=== PATIENT | male | born 1945 | race Caucasian/White ===

== ENCOUNTER 2016-07-02 08:49 | Inpatient (IN) | payer OTHER ==
--- NOTE | 2016-06-28 20:04 | HP ---
HISTORY AND PHYSICAL: DATE OF OFFICE VISIT: 06/28/16 DATE OF SURGERY: 07/02/16 SURGEON: Amara Fletcher MD PROCEDURE: Left total knee arthroplasty. CHIEF COMPLAINT: Left knee pain. HISTORY OF PRESENT ILLNESS: Mr. Herrmann is a 70-year-old gentleman with complaints of left knee pain and advanced osteoarthritis. He has failed conservative management and has elected to proceed with a left total knee arthroplasty. The surgery is scheduled for 07/02/[address] Fletcher. PAST MEDICAL HISTORY: History of lung cancer, hypertension, high cholesterol, acid reflux, divertic ulitis. PAST SURGICAL HISTORY: He had tumor removed from his right lung, right total knee arthroplasty, col on resection, bilateral shoulder arthroscopies, bilateral knee arthroscopies, and a partial left tot al knee arthroplasty. CURRENT MEDICATIONS: 1. Albuterol. 2. Amlodipine. 3. Atorvastatin. 4. Calcium. 5. Fluticasone. 6. Hydrochlorothiazide. 7. Omeprazole. 8. Sildenafil. ALLERGIES: No known drug allergies. FAMILY HISTORY: Lung cancer. SOCIAL HISTORY: He is a 70-year-old gentleman. He is and lives with his . He does not smoke or use drugs and uses alcohol socially. REVIEW OF SYSTEMS: A complete 14-point review of systems was reviewed with the patient, all was neg ative or noncontributory. PHYSICAL EXAMINATION GENERAL: He is well-developed, well-nourished, in no acute distress. VITAL SIGNS: He stands 5 feet 8 inches tall, weighs 195 pounds, blood pressure is 138/86, and his h eart rate is 96. HEENT: Normocephalic, atraumatic. NECK: Supple. No palpable lymph nodes. Trachea is midline. PULMONARY: The lungs are clear to auscultation bilaterally. No wheezes, rhonchi, or rales. CARDIO: Regular rate and rhythm. Strong S1, S2. No murmurs, gallops, or rubs. No peripheral edema . ABDOMEN: Soft, nontender, and nondistended. MUSCULOSKELETAL: Left lower extremity, the skin is intact. He has some moderate joint effusion, te nderness over the medial and lateral joint line. Full range of motion of the left knee. 2+ dorsali s pedis pulses, intact sensation. His lower extremity muscle group strengths are intact at 5/5. NEUROLOGIC: He is alert and oriented x3. Cranial nerves II through XII are intact. ASSESSMENT: Mr. Herrmann 70-year-old gentleman with complaints of left knee pain. He had a partial l eft knee replacement in the past. He has elected to proceed with a revision to complete left total knee. The surgery is scheduled for 07/02/[address] Fletcher discussed the risks and bene fits of the surgery with him today and all his questions were answered. Coumadin, Colace, and Perco [facility] and he was instructed not to take these medications prior to the s urgery. He will follow with Dr. Fletcehr in 2 weeks following the surgery. CHECO WISDOM [id number]/[facility] #: [id number]
[~2016-07-02 08:49] MED LIST: Buffered Lidocaine 1% SYR 3ML* 3 ML/SYR SYRINGE INTRADERM ONE; Dexamethasone IV* 4 MG/ML 1 ML (4 MG) IV SLOW PU ONE
[2016-07-02] MEDS ORDERED: ceFAZolin 2 GM PREMIX (*) 2 GM/50 ML BAG IVPB ONE (09:47)
[2016-07-02] MEDS ORDERED: Buffered Lidocaine 1% SYR 3ML* 3 ML/SYR SYRINGE ONE (09:47)
[2016-07-02] MEDS ORDERED: Dexamethasone IV* 4 MG/ML 1 ML (4 MG) ONE (09:48)
[2016-07-02] MEDS ORDERED: Morphine PF AMP (0.5MG/ML)* 5 MG/10 ML AMP ONE (11:15)
[2016-07-02] MEDS ORDERED: Midazolam* 1 MG/ML 5 ML VIAL (5 MG) ONE ×2 (11:15→12:25)
[2016-07-02] MEDS ORDERED: KETAMINE HCL* 50 MG/ML 10 ML VIAL ONE (11:15)
[2016-07-02] MEDS ORDERED: Bupivacaine 0.5% SDV PF* 30 ML VIAL ONE (11:16)
[2016-07-02] MEDS ORDERED: Scopolamine 1.5 mg* PATCH TRANSDERM PRN (13:06)
[2016-07-02] MEDS ORDERED: Ondansetron INJ* 2 MG/ML VIAL IV PRN (13:06)
[2016-07-02] MEDS ORDERED: oxyCODONE/Acetamin 5/325 MG* TAB PO PRN ×2 (13:06)
[2016-07-02] MEDS ORDERED: Naloxone* 0.4 MG/ML 1 ML VIAL IV PRN (13:06)
[2016-07-02] MEDS ORDERED: fentaNYL* 50 MCG/ML 2 ML VIAL (100 MCG VIAL) IV PRN (13:06)
[2016-07-02] MEDS ORDERED: Nalbuphine* 20 MG/ML 1 ML VIAL IV PRN ×2 (13:06)
[2016-07-02] MEDS ORDERED: Propofol* 10 MG/ML 20 ML BTL IV PUSH ONE ×2 (14:00→14:22)
[2016-07-02] MEDS ORDERED: Ropivacaine* 300 MG in NS 0.9% 250 ML* 240 ML EPIDURAL SCH (14:00)
[2016-07-02] MEDS ORDERED: Ondansetron INJ* 2 MG/ML VIAL ONE (14:22)
[2016-07-02] MEDS ORDERED: Bisacodyl SUPP* 10 MG SUPP PR PRN (15:13)
[2016-07-02] MEDS ORDERED: Polyethylene Glycol 3350* 17 GM PACKET PO PRN (15:13)
[2016-07-02] MEDS ORDERED: Magnesium Hydroxide LIQ* 30 ML UDC PO PRN (15:13)
[2016-07-02] MEDS ORDERED: Acetaminophen TAB* 325 MG PO PRN (15:13)
[2016-07-02] MEDS ORDERED: diPHENhydraMINE IV* 50 MG/ML 1 ml VIAL (BENADRYL) IV PRN (15:13)
[2016-07-02] MEDS ORDERED: PTO: Albuterol/Ipratropium RESP(NF) MDI (Combivent Respimat) INH PRN (15:19)
--- NOTE | 2016-07-02 16:18 | RAD ---
HISTORY: Status post knee arthroplasty COMPARISONS: December 26, 2016 VIEWS: 2, Frontal and lateral views of the left knee FINDINGS: BONE DENSITY: Normal. BONES: The patient is status post left knee arthroplasty. There is no hardware failure or osteolysis. JOINTS: The patient is status post left knee arthroplasty ALIGNMENT: There is no dislocation. SOFT TISSUES: There is post surgical change to the soft tissue OTHER FINDINGS: None. IMPRESSION: STATUS POST LEFT KNEE ARTHROPLASTY.
[2016-07-02] MEDS ORDERED: Warfarin TAB(*) 6 MG PO ONE (17:00)
[2016-07-02] MEDS: Atorvastatin* 20 MG TAB PO SCH (18:23)
[2016-07-02] MEDS: ceFAZolin 1 GM in Dextrose (*) 1 GM/50 ML BAG IVPB SCH (18:23)
[2016-07-02] MEDS: Fluticasone NASAL SPRAY 50MCG* 16 gm SPRAY BTL BOTH NARES SCH (18:25)
--- NOTE | 2016-07-02 19:42 | CONS ---
CONSULTATION REPORT: DATE OF CONSULT: 07/02/16 ATTENDING PHYSICIAN: Amara Fletcher MD. CONSULTING PHYSICIAN: Tin Roman MD (dictation provided by Silvia Llanos NP ). CHIEF COMPLAINT: Left knee pain. REASON FOR CONSULT: Medical comanagement in a patient admitted for left total knee arthroplasty. HISTORY OF PRESENT ILLNESS: Mr. Herrmann is a 70-year-old with a past medical history of lung cancer status post lobectomy, right total knee arthroplasty, hypertension who presented to the hospital today for left total knee arthroplasty with Dr. Fletcher. Please see dictated H and P from her for complete details. In brief, the patient has failed conservative management and elected to proceed with a surgical intervention. He states that prior to coming into surgery, he was feeling his normal state of health with no complaints. He does have a history of lung cancer but has been "cancer free" with routine followup with his oncologist. He has high blood pressure but states it is well controlled with his amlodipine. PAST MEDICAL HISTORY: 1. History of lung cancer status post lobectomy. 2. Hypertension. 3. Hyperlipidemia. 4. GERD. 5. History of diverticulitis. 6. Right total knee arthroplasty. 7. Colon resection. 8. Bilateral shoulder arthroscopies. 9. Bilateral knee arthroscopies. 10. Partial left total arthroplasty. MEDICATIONS: 1. Centrum Silver 1 tab p.o. daily. 2. Ibuprofen 2 tablets p.o. q.6 hours p.r.n. 3. Albuterol/ipratropium 1 puff inhaled p.o. 4 times a day p.r.n. 4. Amlodipine 10 mg p.o. q.a.m. 5. Atorvastatin 20 mg p.o. q.p.m. 6. Flonase 1 spray both nares q.p.m. 7. Hydrochlorothiazide 12.5 mg p.o. q.a.m. 8. Omeprazole 20 mg p.o. b.i.d. ALLERGIES: No known drug allergies. FAMILY HISTORY: Reviewed and noncontributory. SOCIAL HISTORY: The patient has a history of tobacco abuse, quit many years ago. There is a report of social drinking. The patient states he has never had an issue with withdrawal symptoms. He lives with his and states she is his healthcare proxy. REVIEW OF SYSTEMS: A 14-point review of systems was completed with Mr. Herrmann and all those not mentioned above were negative. PHYSICAL EXAM: Vital Signs: Temperature 96.9, heart rate 90, respiratory rate 18, O2 saturation 100% on 4 L nasal cannula, and blood pressure 122/63. General : Mr. Herrmann is lying in the bed in the PACU. He is in no acute distress. Neuro: He is alert and oriented x3. Moves all extremities equally. There is no facial asymmetry or focal weakness. Extraocular movements are intact. Heart : S1, S2. No murmur, rub, or gallop and regular. Lungs: Clear to auscultation bilaterally with no accessory muscle use and good aeration. Abdomen: Soft and nontender with the bowel sounds positive x4. Extremities: No cyanosis or edema. Skin is intact. The patient does have a dressing to his left knee and that incision site was not assessed today. DIAGNOSTIC STUDIES/LAB DATA: The patient does not have a recent set of labs prior to this operation. IMPRESSION: Mr. Herrmann is a 70-year-old male with past medical history of hypertension, lung cancer status post lobectomy, now "in remission" who presents to the hospital today for left total knee arthroplasty with Dr. Fletcher. PLAN/RECOMMENDATIONS: 1. Postop day #0 status post left knee arthroplasty: Management will be per orthopedic surgical services. The patient will have physical and occupational therapy. He will have pain medication p.r.n. with a bowel regimen and we will monitor the H and H closely. 2. Hypertension. Continue amlodipine. 3. Gastroesophageal reflux disease. Continue omeprazole. 4. Hyperlipidemia. Continue atorvastatin. 5. DVT prophylaxis with Lovenox and warfarin per Ortho. 6. Code status is full code. 7. Disposition per Ortho. TIME SPENT: Approximately 60 minutes was spent in the consultation of this patient, more than half the time was spent with him at the bedside, reviewing the events leading up to and so far during this hospitalization, performing the physical examination, and reviewing the [place] [id number]/[facility] #: [id number] PRAVEEN
[2016-07-02] MEDS: Omeprazole CAP* 20 MG PO SCH (21:00)
[2016-07-02] MEDS: Docusate CAP* 100 MG PO SCH (21:00)
[2016-07-03] MEDS: ceFAZolin 1 GM in Dextrose (*) 1 GM/50 ML BAG IVPB SCH ×2 (02:38→09:44)
[2016-07-03] MEDS ORDERED: Ondansetron INJ* 2 MG/ML VIAL IV PRN (06:00)
[2016-07-03] MEDS ORDERED: oxyCODONE/Acetamin 5/325 MG* TAB PO PRN (06:00)
[2016-07-03] MEDS ORDERED: Ondansetron TAB* 4 MG PO PRN (06:00)
[2016-07-03 07:13] LABS: Hematocrit 34 % (42-52); Hemoglobin 11.7 g/dl (14.0-18.0)
[2016-07-03] MEDS: oxyCODONE TAB* 5 MG TAB PO PRN ×3 (07:21→20:11)
--- NOTE | 2016-07-03 07:40 | PN ---
Progress Note - Progress Note SOAP: Subjective: Pt. reports pain is controlled. Objective: LLE - drain removed, tip intact with 250 cc ss drainage. distally +df/pf, full sens lt, 2+ dp pulse. Vital Signs: Temp Pulse Resp BP Pulse Ox 98.1 F 98 20 111/63 96 07/03/16 03:22 07/03/16 03:22 07/03/16 07:21 07/03/16 03:22 07/03/16 03:22 Laboratory Results - last 24 hr 07/03/16 07/03/16 06:32 06:32 Hgb 11.7 L Hct 34 L INR (Anticoag Therapy) 1.03 Assessment: 70 yo M pod 1 s/p revision LTKA Plan: xrays satisfactory wbat LLE PT/OT prn analgesia plan d/c to home with vns 07/04 or 07/05 8 mg coumadin, cont lovenox
[2016-07-03 07:48] LABS: BUN/Creatinine Ratio 18.3 (8-20); Calcium 8.9 mg/dL (8.6-10.3); EGFR African American 91.3 (>60)
[2016-07-03] MEDS: Hydrochlorothiazide TAB* 25 MG PO SCH (08:44)
[2016-07-03] MEDS: Docusate CAP* 100 MG PO SCH ×2 (08:44→20:11)
[2016-07-03] MEDS: Omeprazole CAP* 20 MG PO SCH ×2 (08:44→20:11)
[2016-07-03] MEDS: amLODIPine TAB* 5 MG PO SCH (08:44)
--- NOTE | 2016-07-03 08:57 | PN ---
Subjective Date of Service: 07/03/16 Interval History: patient reports he has some "mild-mod pain but is manageable" - overall feels pretty good. no N/V/D. No fevers or chills. Feels like PT went well today. Objective Active Medications: Acetaminophen (Tylenol Tab*) 650 mg PO Q4H PRN PRN Reason: PAIN OR TEMPERATURE Albuterol/Ipratropium (Combivent Respimat(Nf)) 1 puff INH QID PRN; Protocol PRN Reason: SOB/WHEEZING Amlodipine Besylate (Norvasc Tab*) 10 mg PO QAM [facility] Last Admin: 07/03/16 08:44 Dose: 10 mg Atorvastatin Calcium (Lipitor*) 20 mg PO QPM [facility] Last Admin: 07/02/16 18:23 Dose: 20 mg Bisacodyl (Dulcolax Supp*) 10 mg KS DAILY PRN PRN Reason: constipation Diphenhydramine HCl (Benadryl Iv*) 12.5 mg IV Q6H PRN PRN Reason: PRURITIS Docusate Sodium (Colace Cap*) 100 mg PO BID [facility] Last Admin: 07/03/16 08:44 Dose: 100 mg Enoxaparin Sodium (Lovenox(*)) 30 mg SUBCUT Q24H [facility] Fluticasone Propionate (Flonase Nasal [place] 50mcg*) 1 spray BOTH NARES QPM [facility] Last Admin: 07/02/16 18:25 Dose: Not Given Hydrochlorothiazide (Hydrodiuril Tab*) 12.5 mg PO QAM [facility] Last Admin: 07/03/16 08:44 Dose: 12.5 mg Cefazolin Sodium/Dextrose (Kefzol 1 Gm In Dextrose Duplex (*)) 1 gm in 50 mls @ 200 mls/hr IVPB Q8H [facility] Stop: 07/03/16 10:14 Last Admin: 07/03/16 02:38 Dose: 200 mls/hr Lactated Ringer's (Lactated Ringers 1000 Ml Bag*) 1,000 mls @ 100 mls/hr IV PER RATE [facility] Last Admin: 07/03/16 01:38 Dose: 100 mls/hr Lactulose (Lactulose*) 30 ml PO Q6H PRN PRN Reason: constipation Magnesium Hydroxide (Milk Of Magnesia Liq*) 30 ml PO Q6H PRN PRN Reason: constipation Morphine Sulfate (Morphine Inj (Syringe)*) 2 mg IV Q2H PRN PRN Reason: PAIN Omeprazole (Prilosec Cap*) 20 mg PO BID JENAE Last Admin: 07/03/16 08:44 Dose: 20 mg Ondansetron HCl (Zofran Inj*) 4 mg IV Q6H PRN PRN Reason: nausea Ondansetron HCl (Zofran Tab*) 4 mg PO Q6H PRN PRN Reason: NAUSEA Oxycodone HCl (Roxycodone Tab*) 10 mg PO Q4H PRN PRN Reason: SEVERE PAIN Last Admin: 07/03/16 07:21 Dose: 10 mg Oxycodone/Acetaminophen (Percocet 5/325 Tab*) 1 tab PO Q3H PRN PRN Reason: PAIN - MODERATE Oxycodone/Acetaminophen (Percocet 5/325 Tab*) 2 tab PO Q3H PRN PRN Reason: PAIN - MODERATE Pharmacy Profile Note (Scopolomine Patch Remove*) 1 note PATCH OFF .AFTER 72 HOURS ONE Stop: 07/05/16 13:12 Pharmacy Profile Note (Coumadin Daily Reminder*) 1 note FOLLOW UP 1700 [facility] Polyethylene Glycol/Electrolytes (Miralax*) 17 gm PO DAILY PRN PRN Reason: Constipation Warfarin Sodium (Coumadin Tab(*)) 8 mg PO ONCE@1700 ONE PRN Reason: Protocol Stop: 07/03/16 17:01 Vital Signs 07/02/16 07/02/16 07/03/16 19:32 20:00 00:00 Temperature 97.8 F Pulse Rate 101 Respiratory 16 18 Rate Blood Pressure 115/62 (mmHg) O2 Sat by Pulse 97 Oximetry 07/03/16 07/03/16 07/03/16 00:05 02:15 03:22 Temperature 97.8 F 98.1 F Pulse Rate 92 98 Respiratory 16 16 Rate Blood Pressure 104/55 111/63 (mmHg) O2 Sat by Pulse 97 97 96 Oximetry 07/03/16 07/03/16 07/03/16 04:09 06:09 07:21 Temperature Pulse Rate Respiratory 18 18 20 Rate Blood Pressure (mmHg) O2 Sat by Pulse Oximetry 07/03/16 07:27 Temperature 98.0 F Pulse Rate 100 Respiratory 18 Rate Blood Pressure 139/78 (mmHg) O2 Sat by Pulse 98 Oximetry Oxygen Devices in Use Now: None Appearance: obese male sitting up in a chair in NAD A+O x3 Eyes: No Scleral Icterus, PERRLA Ears/Nose/Mouth/Throat: NL Teeth, Lips, Gums, Mucous Membranes Moist Neck: NL Appearance and Movements; NL JVP Respiratory: Symmetrical Chest Expansion and Respiratory Effort, Clear to Auscultation Cardiovascular: NL Sounds; No Murmurs; No JVD, RRR, No Edema Abdominal: NL Sounds; No Tenderness; No Distention Extremities: - - right lower ext with cryo unit Neurological: Alert and Oriented x 3, NL Sensation, NL Muscle Strength and Tone Lines/Tubes/Other Access: Clean, Dry and Intact Peripheral IV Nutrition: Taking PO's Result Diagrams: 07/03/16 06:32 07/03/16 06:32 Microbiology and Other Data: Microbiology 07/02/16 13:00 Gram Stain - Final Knee Left Assess/Plan/Problems-Billing Assessment: Mr. Herrmann is a 70 yo with PMH of lung ca s/p lobectomy, HTN, right total knee arthroplasty who presented om 07/02/16 for elective left total knee arthroplasty with Dr. Fletcher. Hospital Medicine was asked to co-medical management. - Patient Problems (1) Status post total left knee replacement Comment: Dispo per Ortho. Pain management, Bowel Regimen. HH stable. Continue to monitor. (2) Tachycardia Status: Acute Comment: - mildy tachycardiac low 100s - suspect pain. No CP or SOB. No hypoxia. Will obtain EKG. Pain management. (3) COPD (chronic obstructive pulmonary disease) Comment: controlled. Continue albuterol prn. (4) Hyperlipidemia Comment: Continue atorvastatin. (5) Hypertension Comment: - controlled. continue home medications - HCTZ, norvasc. (6) DVT prophylaxis Comment: lovenox Status and Disposition: inpatient. Dispo per Ortho.
[2016-07-03] MEDS: oxyCODONE/Acetamin 5/325 MG* TAB PO PRN ×2 (09:42→16:57)
--- NOTE | 2016-07-03 09:56 | OP ---
DATE OF OPERATION: 07/02/16 - ROOM #333 DATE OF : 49 SURGEON: Amara Fletcehr MD EXCELLENCE SPECIALIST: CHECO Jerez ANESTHESIOLOGIST: Dr. Carranza. ANESTHESIA: Spinal. 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 OPERATIVE PROCEDURE: Revision, left total knee arthroplasty, revision of femur and tibia with patellar resurfacing. TOURNIQUET TIME: 71 minutes. ESTIMATED BLOOD LOSS: 250 cc. COMPLICATIONS: None. SPECIMENS: Medial bone hardware sent to pathology. Bone and cartilage from the left knee joint sent to pathology. HARDWARE USED: Cemented [employer] total knee hardware. Two packages of Simplex bone cement were used. For the femur, a size 6 left narrow femoral component. For the tibia, a size 5 left tibial base plate. A 35 mm 3-peg All Poly patella was used as well as an 11 mm constrained articular insert. BRIEF HISTORY/INDICATIONS: Mr. Herrmann is a 70-year-old gentleman with 1 year of increasingly severe left knee pain. The patient had prior left medial compartment uni-arthroplasty at an outside facility. Initially, he had significant improvement in his pain. Over time, he developed peripatellar pain as well as medial and lateral joint line pain. He failed conservative treatment with physical therapy. Radiographs showed periprosthetic loosening of the medial compartment uni-arthroplasty. Decision was made to perform revision left total knee arthroplasty. The uni-arthroplasty would be removed and a total knee replacement would be placed. Informed consent was obtained from the patient. He understood a primary implant may not be possible. He accepted that he may need long stems and revision components due to bone loss in the tibia. The patient understood the risks of the procedure included but were not limited to, bleeding, infection, damage to nearby structures, continued pain, need for further surgery, intraoperative fracture, nerve palsy, hardware failure or loosening, heart attacks, stroke, blood clot, and . He wished to proceed. INTRAOPERATIVE FINDINGS: Intraoperatively, the patient had periprosthetic osteolysis along the medial femoral condyle with some bone loss here. He had loosening of the tibial implant with bone loss mainly from the prior surgical cuts. The patient had visible degeneration in the lateral and patellofemoral compartments with cartilage loss and osteophyte formation. DESCRIPTION OF PROCEDURE: Mr. Herrmann was identified in the preanesthesia unit. His left lower extremity was marked as the correct operative side. Informed consent was signed and placed in the chart. The left lower extremity was marked as the correct operative side. The patient was taken to the operating room and placed under spinal anesthesia. A Robles catheter was placed. Tourniquet was placed on the left thigh. The left lower extremity was prepped and draped in the usual sterile fashion. Preop time-out was made to correctly identify the patient's side and site. Appropriate perioperative antibiotics were given within 1 hour of incision. Tourniquet was inflated until the tourniquet time for this procedure was 71 minutes. The patient's prior medial incision was used and this was extended proximally and distally. A 10 blade was used to make the incision and carried down to the extensor mechanism. New 10 blade was used to make a standard medial peripatellar arthrotomy and the patella was subluxed laterally. Electrocautery was used to subperiosteally elevate soft tissue off the superomedial tibia. It was noted that the MCL had significant laxity. The MCL was, however, intact. The uni-arthroplasty implants were visualized. The knee was flexed up. Anterior horn of the lateral meniscus and ACL were sharply released. An osteotome was used to remove the polyethylene insert. At this point, a small oscillating saw was used to disrupt the interface between the femoral implant and cement. Flexible osteotome was used to aid this. A rigid osteotome was then used to remove the femoral implants. Very little bone was associated with the implants. Medial femoral condyle did have some periprosthetic osteolytic bone loss. This involved mainly the distal portion of the medial femoral condyle. Next, attention was turned to removal of the tibial implant. Small oscillating saw was used to brake the boundary between the implant and cement. Flexible osteotome was used to further this cause. The implant was then carefully removed with very little bone loss. Drill was used to enter the distal femur. Intramedullary distal femoral cutting guide was placed on the distal femur with a 5 mm distal augment to correct for any bone loss along the medial femoral condyle. Oscillating saw was used to make the appropriate distal femoral cut. External rotation guide was then placed on the distal femur and the femur was sized to a size 6. Size 6 multi-cutting jig was placed on the distal femur. Oscillating saw was used to make the appropriate chamfer cuts. Despite the osteolysis, decision was made to use cement for the distal medial femoral condyle bone deficits as these were minimal after chamfer cuts. The PCL was completely released and the tibia was subluxed anteriorly. Decision was made to use the prior medial tibial plateau bone cut at the base of the tibial cut. Extramedullary tibial cutting guide was placed on the proximal tibia and pinned into proper position. Oscillating saw was used to make the proximal tibial cut. Mainly, lateral bone was removed. Any cement along the medial tibial plateau was carefully removed. The knee was brought to full extension. The extensor block fit nicely. It was noted that the MCL had laxity unchanged from the beginning of the case. Flexion and extension gaps were well balanced. The knee was flexed up. Any remaining meniscus was carefully removed both medially and laterally using electrocautery. Posterior femoral condyles were checked for any osteophytes. A trial 6 left narrow femur was impacted on to the distal femur and had satisfactory fit. The box for the posterior stabilized implant was prepared using a reamer and box cut osteotome. A trial size 5 tibial tray and 11-mm insert was placed. The knee was taken through range of motion. The knee had full extension and 125 degrees of flexion with good patellofemoral tracking. The patella was everted. There was extensive osteophyte formation and loss of cartilage around the patella. Oscillating saw was used to remove 9 mm of patellar bone and cartilage. The patella was sized to a size 35. The peg holes were drilled through the size 35 guide. A trial 35 patella was placed and the knee was taken through a range of motion. There was good patellofemoral tracking. All trials were carefully removed. The tibia was subluxed anteriorly and sized to a size 5. Proximal tibia was prepared using a size 5 keel punch. Bony cut surfaces were copiously irrigated with sterile saline and dried. Final implants were cemented into place starting with the tibia followed by the femur and last the patella. An 11-mm insert trial was placed while the knee was spread out into full extension. Tourniquet was turned down at 71 minutes. The cement was allowed to fully cure. Once the cement was fully cured, electrocautery was used to obtain meticulous hemostasis. Posterior capsule was checked for any excess cement. An 11-mm insert was chosen as the final implant. Constrained insert was chosen due to MCL laxity. This insert was locked into place on the tibial tray. Stability of the insert was checked and rechecked and noted to be stable. Final range of motion was full extension to 125 degrees of flexion with good medial and lateral stability. The knee was copiously irrigated with sterile saline. The extensor mechanism was closed over a medium Hemovac drain using interrupted #1 Vicryls. The rest of the incision was closed in a layered fashion using 0 and 2-0 Vicryls. The skin was closed using running 3-0 nylon suture. Xeroform, 4x4's, and Webril were used to cover the incision. The patient's anesthesia was reversed without difficulty. He was taken to the PACU in stable condition. Intended weightbearing will be weightbearing as tolerated. Intended DVT prophylaxis will be Coumadin with a Lovenox bridge. [id number]/[facility] #: [id number] PRAVEEN
--- NOTE | 2016-07-03 10:01 | RAD ---
INDICATION: Left total knee arthroplasty COMPARISONS: June 28, 2016 TECHNIQUE: Fluoroscopy was provided for a surgical procedure. Total fluoroscopy time is: 1.9 seconds FINDINGS: A single spot image demonstrates a left knee arthroplasty. IMPRESSION: FLUOROSCOPY WAS PROVIDED FOR A SURGICAL PROCEDURE CPT II Codes: 6045F
[2016-07-03] MEDS: Enoxaparin(*) 30 MG/0.3 ML SYR SUBCUT SCH (12:40)
[2016-07-03] MEDS: Morphine INJ* 2 MG/ML 1 ML CARPUJECT IV PRN ×2 (14:43→22:27)
[2016-07-03] MEDS: Atorvastatin* 20 MG TAB PO SCH (16:58)
[2016-07-03] MEDS ORDERED: Warfarin TAB(*) 4 MG PO ONE (17:00)
[2016-07-03] MEDS: Fluticasone NASAL SPRAY 50MCG* 16 gm SPRAY BTL BOTH NARES SCH (17:04)
[2016-07-03] MEDS ORDERED: NS 0.9% 500 ML* 500 ML IV ONE (19:00)
[2016-07-03 20:35] LABS: Hematocrit 35 % (42-52); Hemoglobin 11.8 g/dl (14.0-18.0)
[2016-07-04] MEDS: oxyCODONE TAB* 5 MG TAB PO PRN ×3 (00:13→10:50)
[2016-07-04] MEDS: Morphine INJ* 2 MG/ML 1 ML CARPUJECT IV PRN (01:54)
[2016-07-04 06:02] LABS: Hematocrit 33 % (42-52); Hemoglobin 11.6 g/dl (14.0-18.0); Mean Corpuscular HGB Conc 35 g/dl (31-36); Mean Corpuscular Hemoglobin 35 pg (27-31); Mean Corpuscular Volume 100 fL (80-94); Mean Platelet Volume 7 um3 (7.4-10.4); Red Cell Distribution Width 13 % (10.5-15); White Blood Count 12.2 10^3/ul (3.5-10.8)
[2016-07-04 06:21] LABS: BUN/Creatinine Ratio 14.1 (8-20); Calcium 8.9 mg/dL (8.6-10.3); EGFR African American 96.7 (>60); EGFR Non-African American 75.2 (>60); Potassium 3.8 mmol/L (3.5-5.0)
[2016-07-04] MEDS: Docusate CAP* 100 MG PO SCH ×2 (07:54→21:03)
[2016-07-04] MEDS: oxyCODONE/Acetamin 5/325 MG* TAB PO PRN ×4 (07:54→21:03)
[2016-07-04] MEDS: Omeprazole CAP* 20 MG PO SCH ×2 (07:54→21:03)
[2016-07-04] MEDS: Hydrochlorothiazide TAB* 25 MG PO SCH (07:54)
[2016-07-04] MEDS: amLODIPine TAB* 5 MG PO SCH (07:54)
[2016-07-04] MEDS ORDERED: NS 0.9% 1000 ML* 1,000 ML IV ONE ×2 (12:32→19:45)
--- NOTE | 2016-07-04 12:33 | PN ---
Subjective Date of Service: 07/04/16 Interval History: Patient seen and examined at bedside. He is OOB to chair and states, "I feel pretty good." He reports adequate pain control with medication and denies CP, dizziness, SOB, abd pain, n/v. He states, "I think the heart rate is getting better, but I don't feel anything." No other nursing concerns expressed at this time. Family History: Unchanged from Admission Social History: Unchanged from Admission Past Medical History: Unchanged from Admission Objective Active Medications: Acetaminophen (Tylenol Tab*) 650 mg PO Q4H PRN PRN Reason: PAIN OR TEMPERATURE Albuterol/Ipratropium (Combivent Respimat(Nf)) 1 puff INH QID PRN; Protocol PRN Reason: SOB/WHEEZING Last Admin: 07/04/16 07:57 Dose: 1 puff Amlodipine Besylate (Norvasc Tab*) 10 mg PO QAM [facility] Last Admin: 07/04/16 07:54 Dose: 10 mg Atorvastatin Calcium (Lipitor*) 20 mg PO QPM [facility] Last Admin: 07/03/16 16:58 Dose: 20 mg Bisacodyl (Dulcolax Supp*) 10 mg [place] DAILY PRN PRN Reason: constipation Diphenhydramine HCl (Benadryl Iv*) 12.5 mg IV Q6H PRN PRN Reason: PRURITIS Docusate Sodium (Colace Cap*) 100 mg PO BID [facility] Last Admin: 07/04/16 07:54 Dose: 100 mg Enoxaparin Sodium (Lovenox(*)) 30 mg SUBCUT Q24H [facility] Last Admin: 07/03/16 12:40 Dose: 30 mg Fluticasone Propionate (Flonase Nasal [place] 50mcg*) 1 spray BOTH NARES QPM [facility] Last Admin: 07/03/16 17:04 Dose: 1 spray Hydrochlorothiazide (Hydrodiuril Tab*) 12.5 mg PO QAM [facility] Last Admin: 07/04/16 07:54 Dose: 12.5 mg Lactulose (Lactulose*) 30 ml PO Q6H PRN PRN Reason: constipation Last Admin: 07/04/16 07:54 Dose: 30 ml Magnesium Hydroxide (Milk Of Magnesia Liq*) 30 ml PO Q6H PRN PRN Reason: constipation Morphine Sulfate (Morphine Inj (Syringe)*) 2 mg IV Q2H PRN PRN Reason: PAIN Last Admin: 07/04/16 01:54 Dose: 2 mg Omeprazole (Prilosec Cap*) 20 mg PO BID [facility] Last Admin: 07/04/16 07:54 Dose: 20 mg Ondansetron HCl (Zofran Inj*) 4 mg IV Q6H PRN PRN Reason: nausea Ondansetron HCl (Zofran Tab*) 4 mg PO Q6H PRN PRN Reason: NAUSEA Oxycodone HCl (Roxycodone Tab*) 10 mg PO Q4H PRN PRN Reason: SEVERE PAIN Last Admin: 07/04/16 10:50 Dose: 10 mg Oxycodone/Acetaminophen (Percocet 5/325 Tab*) 1 tab PO Q3H PRN PRN Reason: PAIN - MODERATE Oxycodone/Acetaminophen (Percocet 5/325 Tab*) 2 tab PO Q3H PRN PRN Reason: PAIN - MODERATE Last Admin: 07/04/16 07:54 Dose: 2 tab Pharmacy Profile Note (Scopolomine Patch Remove*) 1 note PATCH OFF .AFTER 72 HOURS ONE Stop: 07/05/16 13:12 Pharmacy Profile Note (Coumadin Daily Reminder*) 1 note FOLLOW UP 1700 [facility] Last Admin: 07/03/16 16:58 Dose: 1 note Polyethylene Glycol/Electrolytes (Miralax*) 17 gm PO DAILY PRN PRN Reason: Constipation Warfarin Sodium (Coumadin Tab(*)) 8 mg PO ONCE@1700 ONE PRN Reason: Protocol Stop: 07/04/16 17:01 Vital Signs 07/03/16 07/03/16 07/03/16 13:19 14:08 14:43 Temperature Pulse Rate 105 Respiratory 18 18 Rate Blood Pressure 154/84 (mmHg) O2 Sat by Pulse 99 Oximetry 07/03/16 07/03/16 07/03/16 15:29 15:43 16:57 Temperature 97.9 F Pulse Rate 105 Respiratory 20 16 18 Rate Blood Pressure 155/82 (mmHg) O2 Sat by Pulse 99 Oximetry 07/03/16 07/03/16 07/03/16 17:06 18:57 19:38 Temperature 97.9 F 98.3 F Pulse Rate 111 109 Respiratory 22 16 16 Rate Blood Pressure 159/80 151/75 (mmHg) O2 Sat by Pulse 99 98 Oximetry 07/03/16 07/03/16 07/03/16 20:11 20:15 22:11 Temperature Pulse Rate Respiratory 18 18 18 Rate Blood Pressure (mmHg) O2 Sat by Pulse Oximetry 07/03/16 07/03/16 07/03/16 22:27 23:27 23:56 Temperature 97.1 F Pulse Rate 100 Respiratory 18 16 16 Rate Blood Pressure 128/68 (mmHg) O2 Sat by Pulse 96 Oximetry 07/04/16 07/04/16 07/04/16 00:13 01:54 02:13 Temperature Pulse Rate Respiratory 16 20 18 Rate Blood Pressure (mmHg) O2 Sat by Pulse Oximetry 07/04/16 07/04/16 07/04/16 02:54 04:19 06:19 Temperature 98.1 F Pulse Rate 104 Respiratory 20 18 18 Rate Blood Pressure 140/85 (mmHg) O2 Sat by Pulse 98 Oximetry 07/04/16 07/04/16 07/04/16 07:37 07:54 08:00 Temperature 98.4 F Pulse Rate 106 Respiratory 16 16 16 Rate Blood Pressure 139/76 (mmHg) O2 Sat by Pulse 97 Oximetry 07/04/16 07/04/16 07/04/16 08:39 10:50 12:12 Temperature Pulse Rate Respiratory 16 Rate Blood Pressure 139/74 (mmHg) O2 Sat by Pulse 97 Oximetry Oxygen Devices in Use Now: None Appearance: Male patient, OOB to chair, in NAD, pleasant, cooperative. Eyes: PERRLA Ears/Nose/Mouth/Throat: Clear Oropharnyx, Mucous Membranes Moist Neck: NL Appearance and Movements; NL JVP Respiratory: Symmetrical Chest Expansion and Respiratory Effort, Clear to Auscultation Cardiovascular: NL Sounds; No Murmurs; No JVD, RRR - AP 102 Abdominal: NL Sounds; No Tenderness; No Distention Extremities: - - LLE with sandoval bandage and cryotherapy cuff Skin: No Rash or Ulcers Neurological: Alert and Oriented x 3 Lines/Tubes/Other Access: Clean, Dry and Intact Peripheral IV Result Diagrams: 07/04/16 05:28 07/04/16 05:28 Microbiology and Other Data: Microbiology 07/02/16 13:00 Gram Stain - Final Knee Left Assess/Plan/Problems-Billing Assessment: Mr. Herrmann is a 70 yo with PMH of lung ca s/p lobectomy, HTN, right total knee arthroplasty who presented om 07/02/16 for elective left total knee arthroplasty with Dr. Fletcher. Hospital Medicine was asked to co-medical management. - Patient Problems (1) Status post total left knee replacement Code(s): Z96.652 - PRESENCE OF LEFT ARTIFICIAL KNEE JOINT Comment: Dispo per Ortho. Pain management, Bowel Regimen. HH stable. Continue to monitor. (2) Tachycardia Code(s): R00.0 - TACHYCARDIA, UNSPECIFIED Comment: Mild tachycardia in low 100s. Afebrile, no c/o CP or SOB, no hypoxia. EKG shows sinus tachycardia with PACs and diffuse T wave changes; no prior EKG for review. May be secondary to exertion, pain, and stress of surgery. Give NS x 1 liter. Continue pain management. (3) COPD (chronic obstructive pulmonary disease) Code(s): J44.9 - CHRONIC OBSTRUCTIVE PULMONARY DISEASE, UNSPECIFIED Comment: Controlled. Continue albuterol prn. (4) Hyperlipidemia Code(s): E78.5 - HYPERLIPIDEMIA, UNSPECIFIED Comment: Continue atorvastatin. (5) Hypertension Code(s): I10 - ESSENTIAL (PRIMARY) HYPERTENSION Comment: SBP 130s-150s. Continue home amlodipine and HCTZ. (6) DVT prophylaxis Comment: SQ Lovenox with warfarin. Status and Disposition: Inpatient. Dispo per Ortho.
[2016-07-04] MEDS: Enoxaparin(*) 30 MG/0.3 ML SYR SUBCUT SCH (13:15)
--- NOTE | 2016-07-04 13:58 | PN ---
Progress Note - Progress Note SOAP: Subjective: Pt. reports he is doing well, would like to go home tomorrow. Denies chest palpitations or chest pain. Objective: LLE - dressing changed, inc c/d/i. distally nvi. Vital Signs: Temp Pulse Resp BP Pulse Ox 98.3 F 110 16 139/74 98 07/04/16 11:54 07/04/16 11:54 07/04/16 12:50 07/04/16 12:12 07/04/16 11:54 Laboratory Results - last 24 hr 07/03/16 07/04/16 07/04/16 20:27 05:28 05:28 WBC 12.2 H RBC 3.30 L Hgb 11.8 L 11.6 L Hct 35 L 33 L MCV 100 H MCH 35 H MCHC 35 RDW 13 Plt Count 188 MPV 7 L Neut % (Auto) 65.3 Lymph % (Auto) 22.8 L [place] % (Auto) 11.4 H Eos % (Auto) 0.3 Baso % (Auto) 0.2 Absolute Neuts (auto) 8.0 H Absolute Lymphs (auto) 2.8 Absolute Monos (auto) 1.4 H Absolute Eos (auto) 0 Absolute Basos (auto) 0 Absolute Nucleated RBC 0.01 Nucleated RBC % 0 INR (Anticoag Therapy) 1.11 Sodium Potassium Chloride Carbon Dioxide Anion Gap BUN Creatinine Est GFR ( Amer) Est GFR (Non-Af Amer) BUN/Creatinine Ratio Glucose Calcium 07/04/16 05:28 WBC RBC Hgb Hct MCV MCH MCHC RDW Plt Count MPV Neut % (Auto) Lymph % (Auto) [place] % (Auto) Eos % (Auto) Baso % (Auto) Absolute Neuts (auto) Absolute Lymphs (auto) Absolute Monos (auto) Absolute Eos (auto) Absolute Basos (auto) Absolute Nucleated RBC Nucleated RBC % INR (Anticoag Therapy) Sodium 138 Potassium 3.8 Chloride 101 Carbon Dioxide 32 Anion Gap 5 BUN 14 Creatinine 0.99 Est GFR ( Amer) 96.7 Est GFR (Non-Af Amer) 75.2 BUN/Creatinine Ratio 14.1 Glucose 128 H Calcium 8.9 Assessment: 70 yo M pod 2 s/p revision LTKA Plan: pt/ot - wbat lle 8 mg coumadin tonight plan d/c to home tomorrow with vns if medically stable mild tachycardia, receiving 1 l bolus. hct stable. likely due to pain.
[2016-07-04] MEDS ORDERED: Warfarin TAB(*) 4 MG PO ONE (17:00)
[2016-07-04] MEDS ORDERED: Iohexol 350* (CONTRAST) 500 ML MDV IV ONE (17:02)
[2016-07-04] MEDS: NS 0.9% 1000 ML* 1,000 ML IV SCH (17:07)
[2016-07-04] MEDS: Atorvastatin* 20 MG TAB PO SCH (17:33)
[2016-07-04] MEDS: Fluticasone NASAL SPRAY 50MCG* 16 gm SPRAY BTL BOTH NARES SCH (17:48)
--- NOTE | 2016-07-04 17:51 | RAD ---
Indication: Tachycardia. CTA of the chest was performed without IV contrast administration. Administered 76.0 ml of OMNIPAQUE 350 mgi/ml was given according to hospital protocol. Coronal and sagittal reconstructed images were obtained. The pulmonary arterial tree is well opacified. There are no filling defects present to suggest pulmonary embolus. Small right peritracheal lymph nodes are noted measuring up to 5 mm. Subcarinal lymph nodes measuring up to 5 mm is noted. The heart demonstrates no pericardial effusion. The trachea and major bronchi appear patent. There is postoperative changes in the right superior hilar area from prior mass resection. Postoperative changes of the right ribs are noted. No pleural fluid is noted. There appears to be some chronic interstitial disease with some subpleural nodules in the right middle lobe and right lower lobe. The aorta demonstrates no evidence of aortic dissection. Axilla demonstrates small scattered hyperplastic lymph nodes. The visualized abdominal organs demonstrate no focal masses. IMPRESSION: No PULMONARY EMBOLUS IS NOTED. POSTOPERATIVE CHANGES IN THE RIGHT UPPER LOBE AND RIGHT CHEST WALL POSTERIORLY INCLUDING THE RIGHT SEVENTH AND EIGHTH RIBS POSTERIORLY. TINY SUBPLEURAL NODULES IN THE RIGHT MIDDLE LOBE AND RIGHT LOWER LOBE WHICH ARE LIKELY NOT CLINICALLY SIGNIFICANT.
[2016-07-04 19:05] LABS: Urine Bilirubin Negative (Negative); Urine Glucose Negative (Negative); Urine Nitrite Negative (Negative)
--- NOTE | 2016-07-04 19:57 | PN ---
Hospitalist Progress Note Patient with 102 fever. CTA already pending; blood cultures, lactic, and urine ordered. Patient denies any further pain. Initial concern for 92/76 BP; recheck manually was 150/78. Knee dressing removed and incision examined - incision c/d/ i with no redness, streaking, or purulent drainage. CTA did not show any infiltrates, urine negative. Patient has no other complaints or concerns and states he "feels fine." Suspect atelectasis. Discussed more frequent use of IS and importance of TCDB with patient. Patient verbalized understanding. No acute hypoxia noted. Continue IVF, recheck CBC tomorrow.
[2016-07-05] MEDS: oxyCODONE TAB* 5 MG TAB PO PRN (00:09)
[2016-07-05] MEDS: oxyCODONE/Acetamin 5/325 MG* TAB PO PRN ×5 (03:06→15:02)
[2016-07-05] MEDS: NS 0.9% 1000 ML* 1,000 ML IV SCH (03:10)
[2016-07-05 06:53] LABS: Hematocrit 31 % (42-52); Hemoglobin 10.9 g/dl (14.0-18.0); Mean Corpuscular HGB Conc 35 g/dl (31-36); Mean Corpuscular Hemoglobin 35 pg (27-31); Mean Corpuscular Volume 100 fL (80-94); Mean Platelet Volume 8 um3 (7.4-10.4); Red Blood Count 3.09 10^6/ul (4.0-5.4); Red Cell Distribution Width 13 % (10.5-15); White Blood Count 10.4 10^3/ul (3.5-10.8)
--- NOTE | 2016-07-05 07:50 | PN ---
Progress Note - Progress Note SOAP: Subjective: [70 y/o male s/p L TKA. Patient with fever overnight, underwent full work up including CTA- negative. Patient reports feeling well, no complaints, no pains. + BM, + urine. ] Objective: [GEneral- WEll appearing, resting comfortably. MSK- 2+ PT pulse L leg, minimal edema non=pitting, negative Homans sign L leg, incision C/D/I, new dressing placed. light touch sensation intact L leg ] Vital Signs Temp 98.3 F 07/05/16 03:05 Pulse 103 07/05/16 03:05 Resp 20 07/05/16 06:14 BP 127/68 07/05/16 03:05 Pulse Ox 98 07/05/16 03:05 Intake & Output 07/04/16 07/05/16 07/05/16 18:59 06:59 18:59 Intake Total 1510 1587 Output Total 1125 1150 Balance 385 437 Weight 198 lb Intake: IV Fluids 950 917 NS 950 917 Oral 560 670 Output: Urine 1125 1150 Other: Estimated Void Medium Laboratory Results - last 24 hr 07/04/16 07/04/16 07/05/16 17:05 17:50 06:07 WBC 10.4 RBC 3.09 L Hgb 10.9 L Hct 31 L MCV 100 H MCH 35 H MCHC 35 RDW 13 Plt Count 173 MPV 8 Neut % (Auto) 56.0 Lymph % (Auto) 30.6 [place] % (Auto) 11.8 H Eos % (Auto) 1.4 Baso % (Auto) 0.2 Absolute Neuts (auto) 5.8 Absolute Lymphs (auto) 3.2 Absolute Monos (auto) 1.2 H Absolute Eos (auto) 0.1 Absolute Basos (auto) 0 Absolute Nucleated RBC 0 Nucleated RBC % 0 INR (Anticoag Therapy) Lactic Acid 1.5 Urine Color Yellow Urine Appearance Clear Urine pH 6.0 Ur Specific [place] 1.019 Urine Protein Negative Urine Ketones Negative Urine Blood Negative Urine Nitrate Negative Urine Bilirubin Negative Urine Urobilinogen Negative Ur Leukocyte Esterase Negative Urine Glucose Negative 07/05/16 06:07 WBC RBC Hgb Hct MCV MCH MCHC RDW Plt Count MPV Neut % (Auto) Lymph % (Auto) [place] % (Auto) Eos % (Auto) Baso % (Auto) Absolute Neuts (auto) Absolute Lymphs (auto) Absolute Monos (auto) Absolute Eos (auto) Absolute Basos (auto) Absolute Nucleated RBC Nucleated RBC % INR (Anticoag Therapy) 1.50 H Lactic Acid Urine Color Urine Appearance Urine pH Ur Specific [place] Urine Protein Urine Ketones Urine Blood Urine Nitrate Urine Bilirubin Urine Urobilinogen Ur Leukocyte Esterase Urine Glucose Active Medications Generic Name Dose Route Start Last Admin Trade Name Freq PRN Reason Stop Dose Admin Acetaminophen 650 mg 07/02/16 15:13 Tylenol Tab* PO Q4H PRN PAIN OR TEMPERATURE Albuterol/Ipratropium 1 puff 07/02/16 15:19 07/04/16 07:57 Combivent Respimat(Nf) INH 1 puff QID PRN Administration SOB/WHEEZING Protocol Amlodipine Besylate 10 mg 07/03/16 09:00 07/04/16 07:54 Norvasc Tab* PO 10 mg QAM JENA[facility] Administration Atorvastatin Calcium 20 mg 07/02/16 18:00 07/04/16 17:33 Lipitor* PO 20 mg QPM JENAE Administration Bisacodyl 10 mg 07/02/16 15:13 Dulcolax Supp* [place] DAILY PRN constipation Diphenhydramine HCl 12.5 mg 07/02/16 15:13 Benadryl Iv* IV Q6H PRN PRURITIS Docusate Sodium 100 mg 07/02/16 21:00 07/04/16 21:03 Colace Cap* PO 100 mg BID JENAE Administration Enoxaparin Sodium 30 mg 07/03/16 13:00 07/04/16 13:15 Lovenox(*) SUBCUT 30 mg Q24H [facility] Administration Fluticasone Propionate 1 spray 07/02/16 18:00 07/04/16 17:48 Flonase Nasal [place] 50mcg* BOTH NARES 1 spray QPM JENAE Administration Hydrochlorothiazide 12.5 mg 07/03/16 09:00 07/04/16 07:54 Hydrodiuril Tab* PO 12.5 mg QAM [facility] Administration Sodium Chloride 1,000 mls @ 100 mls/hr 07/04/16 16:15 07/05/16 03:10 Ns 0.9% 1000 Ml* IV 07/06/16 02:14 100 mls/hr PER RATE [facility] Administration Lactulose 30 ml 07/02/16 15:13 07/04/16 07:54 Lactulose* PO 30 ml Q6H PRN Administration constipation Magnesium Hydroxide 30 ml 07/02/16 15:13 Milk Of Magnesia Liq* PO Q6H PRN constipation Morphine Sulfate 2 mg 07/02/16 15:13 07/04/16 01:54 Morphine Inj (Syringe)* IV 2 mg Q2H PRN Administration PAIN Omeprazole 20 mg 07/02/16 21:00 07/04/16 21:03 Prilosec Cap* PO 20 mg BID [facility] Administration Ondansetron HCl 4 mg 07/03/16 06:00 Zofran Inj* IV Q6H PRN nausea Ondansetron HCl 4 mg 07/03/16 06:00 Zofran Tab* PO Q6H PRN NAUSEA Oxycodone HCl 10 mg 07/02/16 15:13 07/05/16 00:09 Roxycodone Tab* PO 10 mg Q4H PRN Administration SEVERE PAIN Oxycodone/Acetaminophen 1 tab 07/03/16 06:00 Percocet 5/325 Tab* PO Q3H PRN PAIN - MODERATE Oxycodone/Acetaminophen 2 tab 07/03/16 06:00 07/05/16 06:14 Percocet 5/325 Tab* PO 2 tab Q3H PRN Administration PAIN - MODERATE Pharmacy Profile Note 1 note 07/05/16 13:11 Scopolomine Patch Remove* PATCH OFF 07/05/16 13:12 .AFTER 72 HOURS ONE Pharmacy Profile Note 1 note 07/03/16 17:00 07/04/16 17:35 Coumadin Daily Reminder* FOLLOW UP 1 note 1700 [facility] Administration Polyethylene Glycol/Electrolytes 17 gm 07/02/16 15:13 Miralax* PO DAILY PRN Constipation Assessment: [70 y/o male s/p L TKA POD #3 ] Plan: [- D/C today- consult with hospitalists to ensure safety prior to D/C. - COumadin as directed - Continue PT - Follow up with Dr Fletcher x 10 days ]
[2016-07-05] MEDS: Omeprazole CAP* 20 MG PO SCH (08:41)
[2016-07-05] MEDS: Hydrochlorothiazide TAB* 25 MG PO SCH (08:42)
[2016-07-05] MEDS: Docusate CAP* 100 MG PO SCH (08:42)
[2016-07-05] MEDS: amLODIPine TAB* 5 MG PO SCH (08:42)
--- NOTE | 2016-07-05 12:21 | PN ---
Subjective Date of Service: 07/05/16 Interval History: Patient seen and examined at bedside. He states, "I feel great and I'm ready to go now!" Denies fever/chills, CP, SOB, abd pain, n/v overnight or this morning. Reports adequate pain control of knee. Family History: Unchanged from Admission Social History: Unchanged from Admission Past Medical History: Unchanged from Admission Objective Active Medications: Acetaminophen (Tylenol Tab*) 650 mg PO Q4H PRN PRN Reason: PAIN OR TEMPERATURE Albuterol/Ipratropium (Combivent Respimat(Nf)) 1 puff INH QID PRN; Protocol PRN Reason: SOB/WHEEZING Last Admin: 07/04/16 07:57 Dose: 1 puff Amlodipine Besylate (Norvasc Tab*) 10 mg PO QAM [facility] Last Admin: 07/05/16 08:42 Dose: 10 mg Atorvastatin Calcium (Lipitor*) 20 mg PO QPM [facility] Last Admin: 07/04/16 17:33 Dose: 20 mg Bisacodyl (Dulcolax Supp*) 10 mg [place] DAILY PRN PRN Reason: constipation Diphenhydramine HCl (Benadryl Iv*) 12.5 mg IV Q6H PRN PRN Reason: PRURITIS Docusate Sodium (Colace Cap*) 100 mg PO BID [facility] Last Admin: 07/05/16 08:42 Dose: 100 mg Enoxaparin Sodium (Lovenox(*)) 30 mg SUBCUT Q24H [facility] Last Admin: 07/04/16 13:15 Dose: 30 mg Fluticasone Propionate (Flonase Nasal [place] 50mcg*) 1 spray BOTH NARES QPM [facility] Last Admin: 07/04/16 17:48 Dose: 1 spray Hydrochlorothiazide (Hydrodiuril Tab*) 12.5 mg PO QAM [facility] Last Admin: 07/05/16 08:42 Dose: 12.5 mg Sodium Chloride (Ns 0.9% 1000 Ml*) 1,000 mls @ 100 mls/hr IV PER RATE [facility] Stop: 07/06/16 02:14 Last Admin: 07/05/16 03:10 Dose: 100 mls/hr Lactulose (Lactulose*) 30 ml PO Q6H PRN PRN Reason: constipation Last Admin: 07/05/16 11:23 Dose: 30 ml Magnesium Hydroxide (Milk Of Magnesia Liq*) 30 ml PO Q6H PRN PRN Reason: constipation Morphine Sulfate (Morphine Inj (Syringe)*) 2 mg IV Q2H PRN PRN Reason: PAIN Last Admin: 07/04/16 01:54 Dose: 2 mg Omeprazole (Prilosec Cap*) 20 mg PO BID [facility] Last Admin: 07/05/16 08:41 Dose: 20 mg Ondansetron HCl (Zofran Inj*) 4 mg IV Q6H PRN PRN Reason: nausea Ondansetron HCl (Zofran Tab*) 4 mg PO Q6H PRN PRN Reason: NAUSEA Oxycodone HCl (Roxycodone Tab*) 10 mg PO Q4H PRN PRN Reason: SEVERE PAIN Last Admin: 07/05/16 00:09 Dose: 10 mg Oxycodone/Acetaminophen (Percocet 5/325 Tab*) 1 tab PO Q3H PRN PRN Reason: PAIN - MODERATE Oxycodone/Acetaminophen (Percocet 5/325 Tab*) 2 tab PO Q3H PRN PRN Reason: PAIN - MODERATE Last Admin: 07/05/16 11:20 Dose: 2 tab Pharmacy Profile Note (Scopolomine Patch Remove*) 1 note PATCH OFF .AFTER 72 HOURS ONE Stop: 07/05/16 13:12 Pharmacy Profile Note (Coumadin Daily Reminder*) 1 note FOLLOW UP 1700 [facility] Last Admin: 07/04/16 17:35 Dose: 1 note Polyethylene Glycol/Electrolytes (Miralax*) 17 gm PO DAILY PRN PRN Reason: Constipation Vital Signs 07/04/16 07/04/16 07/04/16 12:50 14:37 15:02 Temperature 101.1 F Pulse Rate 111 Respiratory 16 16 22 Rate Blood Pressure 145/69 (mmHg) O2 Sat by Pulse 97 Oximetry 07/04/16 07/04/16 07/04/16 16:22 16:37 17:33 Temperature 102.5 F Pulse Rate Respiratory 16 20 Rate Blood Pressure (mmHg) O2 Sat by Pulse Oximetry 07/04/16 07/04/16 07/04/16 19:33 19:40 19:45 Temperature 101.4 F Pulse Rate 106 Respiratory 18 18 Rate Blood Pressure 92/76 150/78 (mmHg) O2 Sat by Pulse 98 Oximetry 07/04/16 07/04/16 07/04/16 19:54 21:03 23:03 Temperature Pulse Rate Respiratory 18 20 20 Rate Blood Pressure (mmHg) O2 Sat by Pulse Oximetry 07/04/16 07/05/16 07/05/16 23:59 00:09 02:09 Temperature 98.8 F Pulse Rate 102 Respiratory 16 20 18 Rate Blood Pressure 124/70 (mmHg) O2 Sat by Pulse 98 Oximetry 07/05/16 07/05/16 07/05/16 03:05 03:06 05:06 Temperature 98.3 F Pulse Rate 103 Respiratory 18 16 18 Rate Blood Pressure 127/68 (mmHg) O2 Sat by Pulse 98 Oximetry 07/05/16 07/05/16 07/05/16 06:14 07:26 08:43 Temperature 99.0 F Pulse Rate 93 Respiratory 20 16 18 Rate Blood Pressure 127/57 (mmHg) O2 Sat by Pulse 96 Oximetry 07/05/16 07/05/16 11:20 12:01 Temperature 99.1 F Pulse Rate 102 Respiratory 20 16 Rate Blood Pressure 127/71 (mmHg) O2 Sat by Pulse 97 Oximetry Oxygen Devices in Use Now: None Appearance: Male patient, sitting up in bed, in NAD Eyes: PERRLA Ears/Nose/Mouth/Throat: Clear Oropharnyx, Mucous Membranes Moist Neck: NL Appearance and Movements; NL JVP Respiratory: Symmetrical Chest Expansion and Respiratory Effort, Clear to Auscultation Cardiovascular: NL Sounds; No Murmurs; No JVD, RRR Abdominal: NL Sounds; No Tenderness; No Distention Extremities: - - LLE sandoval bandage c/d/i, knee incision well approximated, arthur intact, no purulent drainage Skin: No Rash or Ulcers Neurological: Alert and Oriented x 3 Lines/Tubes/Other Access: Clean, Dry and Intact Peripheral IV Nutrition: Taking PO's Result Diagrams: 07/05/16 06:07 07/04/16 05:28 Microbiology and Other Data: Microbiology 07/02/16 13:00 Gram Stain - Final Knee Left Assess/Plan/Problems-Billing Assessment: Mr. Herrmann is a 70 yo with PMH of lung ca s/p lobectomy, HTN, right total knee arthroplasty who presented om 07/02/16 for elective left total knee arthroplasty with Dr. Fletcher. [facility] was asked to co-medical management. - Patient Problems (1) Fever Code(s): R50.9 - FEVER, UNSPECIFIED Comment: Tmax 102.5 on 07/04 evening. CTA negative for PE, infiltrates. UA negative. Knee incision negative for redness, streaking, purulent drainage. WBC decreased from 12 to 10. Suspect atelectasis. Would recommend keeping patient until afternoon VS done to monitor for further fevers and then okay for discharge. Patient educated on s/s of fever/infection to monitor at home. (2) Status post total left knee replacement Code(s): Z96.652 - PRESENCE OF LEFT ARTIFICIAL KNEE JOINT Comment: Dispo per Ortho. Pain management, Bowel Regimen. HH stable. Continue to monitor. (3) Tachycardia Code(s): R00.0 - TACHYCARDIA, UNSPECIFIED Comment: Improved. Suspect secondary to pain and recent fever last evening. CTA negative for PE. Patient denies CP, SOB, hypoxia. EKG shows sinus tachycardia with PACs and diffuse T wave changes; no prior EKG for review. (4) COPD (chronic obstructive pulmonary disease) Code(s): J44.9 - CHRONIC OBSTRUCTIVE PULMONARY DISEASE, UNSPECIFIED Comment: Controlled. Continue albuterol prn. (5) Hyperlipidemia Code(s): E78.5 - HYPERLIPIDEMIA, UNSPECIFIED Comment: Continue atorvastatin. (6) Hypertension Code(s): I10 - ESSENTIAL (PRIMARY) HYPERTENSION Comment: SBP 120s. Continue home amlodipine and HCTZ. (7) DVT prophylaxis Comment: SQ Lovenox with warfarin. Status and Disposition: Inpatient. Dispo per Ortho.
[2016-07-05] MEDS ORDERED: Scopolamine PATCH Remove* 1 NOTE MISC PATCH OFF ONE (13:11)
[2016-07-05] MEDS: Enoxaparin(*) 30 MG/0.3 ML SYR SUBCUT SCH (15:02)
[2016-07-05 15:43] VITALS: BP 140/70
--- NOTE | 2016-07-07 14:29 | DS ---
DISCHARGE SUMMARY: DATE OF ADMISSION: 07/02/16 DATE OF DISCHARGE: 07/05/16 CHIEF COMPLAINT: 1. Left knee end-stage osteoarthritis. 2. History of lung cancer. 3. Hypertension. 4. Elevated cholesterol. 5. Acid reflux. 6. Diverticulitis. DISCHARGE DIAGNOSES: 1. Total left knee arthroplasty. 2. History of lung cancer. 3. Hypertension. 4. Elevated cholesterol. 5. Acid reflux. 6. Diverticulitis. PROCEDURE: Left total knee arthroplasty. CONSULTATIONS: 1. Physical Therapy. 2. Occupational Therapy. 3. Medicine. BRIEF HISTORY: Mr. Herrmann is a very pleasant 70-year-old gentleman with severe end- stage degenerative osteoarthritis of the left knee, who failed conservative treatment and elected to undergo a left total knee arthroplasty on 07/02/[address] Amara Fletcher. HOSPITAL COURSE: Mr. Herrmann was admitted to [facility] on 07/02/16, where he underwent an uncomplicated left total knee arthroplasty with revision of femur and fibula with patellar resurfacing after having a periprosthetic loosening and failure of the left medial uniarthroplasty of his left knee. Postoperatively, he recovered in the short surgical stay unit. The patient's Robles was removed on postoperative day 2 without difficulty and the patient was voiding on his own. He was advanced to a regular diet without difficulty and his pain was controlled with p.o. Percocet and he was restarted on his home medications. The patient was noted to be febrile on the evening of 07/04/16 with a T-max of 102.5. Extensive workup including chest/thorax CTA, urinalysis , and blood cultures as well as wound cultures were drawn and were all negative for any bacterial growth. The patient's temperature returned to normal values within 24 hours without medication and he denied any symptoms throughout his entire stay. He advanced appropriately with physical therapy and occupational therapy and was able to weight bear as tolerated on the left lower extremity. His DVT prophylaxis was managed with Lovenox and Coumadin until he reached a therapeutic INR. By postoperative day 3, he was orthopedically and medically stable for discharge, to go home with home services. PHYSICAL EXAMINATION: General: The patient is alert and oriented, in no acute distress, resting comfortably in bed. Vital Signs: Temperature 98.3, pulse 103 , respirations 20, blood pressure 125/68, with oxygen saturation 98% on room air. Extremities: Examination of the left lower extremity shows 2+ posterior tibial pulse with minimal non-pitting edema. Negative Homans sign on the left leg. The incision is clean, dry, and intact and a new sterile dressing is placed. Light touch sensation is intact on the left lower extremity. LABORATORY DATA: On the date of discharge, the patient's H and H was 10.9 and 31 and white blood cell count of 7.4. INR of 1.5. DISCHARGE MEDICATIONS: 1. Colace 100 mg p.o. b.i.d. 2. Coumadin 2 mg to be taken at 5 p.m. 3. Albuterol/ipratropium 1 puff inhaled q.i.d. 4. Amlodipine 10 mg 1 tablet q.a.m. 5. Atorvastatin 20 mg q.p.m. 6. Daily multivitamin. 7. Fluconazole nasal spray 1 spray to bilateral naris q.p.m. 8. Hydrochlorothiazide 12.5 mg q.a.m. 9. Omeprazole 20 mg p.o. b.i.d. 10. Oxycodone 1 to 2 tablets every 4 to 6 hours p.r.n. pain. CONDITION ON DISCHARGE: Stable. DISCHARGE INSTRUCTIONS: Mr. Herrmann is a very pleasant 70-year-old gentleman, postoperative day 3 status post left total knee revision arthroplasty, which was complicated by postoperative fever on postoperative day #2. He is orthopedically and medically stable for discharge, to go home with home services. His labs and vital signs have remained stable for the past 24 hours. He will restart his home medications and he will continue his Coumadin dosing. Per instructions, he will recheck his INRs on Friday and with is visiting home nurse. He will remain weightbearing as tolerated on the left lower extremity. He will receive physical therapy exercises; he will have home physical therapy 1 to 2 times a week. He will take Percocet as needed for pain control and Colace up to 3 times a day for constipation. He will follow up with Dr. Fletcher in approximately 10 to 14 days for incision check and suture removal. He was instructed to go to the ER immediately should he develop chest pain or shortness of breath, and should he develop fever or increasing pain or redness along the incision site, he is to call the office immediately. [place] JOHNSON [id number]/[facility] #: [id number] MTDD
== END 2016-07-05 16:13 | disposition home health service (06) | DRG 302 ==
LOC: AA 08:49 → SSU 15:16
PROVIDERS: ADMIT Orthopaedic Surgery Adult Reconstructive Orthopaedic Surgery; ATTEND Orthopaedic Surgery Adult Reconstructive Orthopaedic Surgery
PROC: 0SPD0JZ Removal of Synthetic Substitute from Left Knee Joint, Open Approach (ICD-10-PCS; 2016-07-02)
PROC: 0SRD0J9 Replacement of Left Knee Joint with Synthetic Substitute, Cemented, Open Approach (ICD-10-PCS; principal; 2016-07-02 12:00)
DX: T84.053A Periprosthetic osteolysis of internal prosthetic left knee joint, initial encounter (principal); T84.033A Mechanical loosening of internal left knee prosthetic joint, initial encounter; J44.9 Chronic obstructive pulmonary disease, unspecified; Y83.8 Other surgical procedures as the cause of abnormal reaction of the patient, or of later complication, without mention of misadventure at the time of the procedure; Y92.9 Unspecified place or not applicable; Z85.118 Personal history of other malignant neoplasm of bronchus and lung; I10 Essential (primary) hypertension; K21.9 Gastro-esophageal reflux disease without esophagitis; Z96.651 Presence of right artificial knee joint; Z80.1 Family history of malignant neoplasm of trachea, bronchus and lung; R00.0 Tachycardia, unspecified; E66.9 Obesity, unspecified; E78.5 Hyperlipidemia, unspecified; R50.9 Fever, unspecified; Z68.28 Body mass index [BMI] 28.0-28.9, adult
CPT/HCPCS: 36415; 62327; 71275; 76000; 80048; 81003; 83605; 85014; 85018; 85025; 85610; 87040; 87070; 87073; 87205; 88300; 88305; 88311; 93005; 94760; A9270-GY; C1776; J0690; J1100; J1650; J2250; J2270; J2405; J2704; J2795; Q9967